=== PATIENT | male | born 1950 | race Caucasian/White ===

== ENCOUNTER 2023-01-29 13:10 | Outpatient (CLI) | payer MEDICARE, SELFPAY ==
--- NOTE | ~2023-01-29 | PE_ITS ---
EXAMINATION: PET_PETPSMAST_PT DATE: 01/29/2023 15:27 INDICATION: Malignant neoplasm of the prostate TECHNIQUE: 8.978 mCi of pipflufolastat F-18 ([id number]-[id number]) was administered i.v. Low dose computed to mography (CT) images were acquired from the base of the brain to the base of the brain to the proxima l thighs for attenuation correction and anatomic localization. Positron emission tomography (PET) abby ges were acquired in the same distribution beginning 95 minutes after injection. Images including fus ed PET/CT images were reconstructed in axial, coronal, and sagittal planes. Automated exposure contro l technique was employed. The dose-length product was 1028.90mGy-cm. COMPARISON: None FINDINGS: Head/neck: Typical pattern of symmetric physiologic increased activity in the lacrimal, parotid and submandibula r glands as well as along the mucosa of the nasal and oral cavities, the karime-, naso- and hypopharynx, the glottis and esophagus. 8 mm PSMA avid sclerotic lesion in the left frontal bone, slightly supero lateral to the left orbit with maximal SUV of 7.1. No pathologically enlarged cervical lymphadenopath y or other suspicious foci of increased uptake in the visualized head or neck. Chest: Lungs are clear with no suspicious pulmonary nodules, pneumonia, pulmonary edema or other pulmonary i nfiltrates. No pleural effusion. Heart size is normal. Atherosclerotic coronary artery calcification. No pericardial effusion. Calcified left hilar lymph nodes consistent with old granulomatous disease. No pathologically enlarged or PSMA avid thoracic lymphadenopathy. Small focus of likely extravasated activity at the right antecubital fossa site of injection. No suspicious lytic, blastic or PSMA avid bone lesions. Abdomen/pelvis/proximal thighs: Physiologic renal accumulation and excretion of activity in the kidneys, bladder and along portions o f ureters. 3 nonobstructing right renal stones the largest lower pole measuring 5 mm. Normal degree a nd slightly heterogenous pattern of increased uptake throughout the liver and spleen without radiolog ic correlate or dominant PSMA avid lesion. 1.5 cm low-attenuation hepatic cyst with corresponding yashira topenic defect PSMA of imaging. Multiple small splenic calcifications consistent with old granulomato us disease. The gallbladder, pancreas and bilateral adrenal glands are normal. Moderate uptake scatte red throughout the bowels with typical duodenal and proximal jejunal predominance and without radiolo gic correlate, also likely physiologic. Mild prostatomegaly measuring 4.1 x 3.9 cm. There is a subcen timeter focus of mild increased uptake with maximal SUV of 7.6 at the right posterior inferior margin of the prostate. There is a second larger and more intense focus of uptake measuring approximately 1 .5 cm diameter and 2.5 cm craniocaudally at the posterior midline of the prostate extending to the ba se of the seminal vesicles with maximal SUV of 26.5. There is a normal-sized left inguinal lymph node measuring 8 mm in maximal short axis diameter with mild increased PSMA activity of 5.0. There is a c ontralateral right inguinal lymph node measuring 5 mm in short axis diameter with maximal SUV of 4.7. No other abnormal foci of increased uptake or pathologically enlarged lymphadenopathy in the abdomen , pelvis or proximal thighs. There are a few small sclerotic likely bone islands in the left and righ t innominate bones of the pelvis without corresponding increased PSMA activity. 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 The L5 verteb ral body appears fused with grade 1 anterolisthesis on the S1 vertebral body. No other suspicious lyt ic, blastic or PSMA avid bone lesions. IMPRESSION: 1. A couple regions of abnormally increased PSMA activity within the prostate consistent with provide d history of biopsy-proven prostate cancer. 2. Incr
== END 2023-01-29 13:11 | disposition home or self-care (01) ==
LOC: ANHIMG 13:16
PROVIDERS: PCP Internal Medicine; Visit Provider Urology
DX: C61 Malignant neoplasm of prostate (principal); N20.0 Calculus of kidney
CPT/HCPCS: 78815; A9595